=== PATIENT | female | born 1955 | race Two or more races ===

== ENCOUNTER 2022-04-17 23:59 | Emergency (ER) | payer OTHER ==
[~2022-04-17] VITALS: Ht 157.5 cm; Wt 66.7 kg
[2022-04-18 02:44] VITALS: BP 144/87
--- NOTE | 2022-04-18 02:45 | NUR ---
BIBS FOR R LOWER CHAVEZ LACERATION WITH GLASS HAPPENED LAST WEEK. PATIENT IS TURKMEN SPEAKING. ABLE TO MAKE NEEDS KNOWN. ASSISTED TO CHAIR.
[2022-04-18] MEDS ORDERED: TDAP [DIPH/PERTUSSIS/TET] 0.5 ML VIAL IM ONE ×2 (02:50→03:00)
--- NOTE | 2022-04-18 03:18 | NUR ---
Patient discharged to home in stable condition. Written and verbal after care instructions given. Patient verbalizes understanding of instruction.
== END 2022-04-18 03:18 | disposition home or self-care (01) ==
LOC: EDSEX 04-18 00:04 → ER 04-18 00:04
DX: S91.011A Laceration without foreign body, right ankle, initial encounter (principal); W25.XXXA Contact with sharp glass, initial encounter; Y93.89 Activity, other specified; Y92.89 Other specified places as the place of occurrence of the external cause; Y99.8 Other external cause status
CPT/HCPCS: 90715